=== PATIENT | female | born 1980 | race Caucasian/White ===

== ENCOUNTER 2018-12-28 12:15 | Emergency (ER) | payer MEDICAID, OTHER ==
[~2018-12-28] VITALS: Ht 167.6 cm; Wt 76.2 kg
[2018-12-28 13:34] LABS: Basophils # (auto) 0 uL; Basophils % (auto) 0.4 % (0.0-2.0); Eosinophils # (auto) 0.1 uL; Eosinophils % (auto) 1.2 % (0.0-7.0); Hematocrit 44.4 % (36.0-46.0); Hemoglobin 15.5 g/dL (12.2-16.2); Lymphocytes % (auto) 33.4 % (10.0-50.0); Mean Corpuscular Volume 94.3 fL (80.0-100.0); Monocytes # (auto) 0.3 uL; Monocytes % (auto) 5.4 % (0.0-12.0); Neutrophils # (auto) 3.6 uL; Neutrophils % (auto) 59.6 % (37.0-80.0); Nucleated Red Blood Cells % 0.2 %; Platelet Count (auto) 270 10^3/uL (140-450); Red Blood Cells 4.71 10^6/uL (4.0-5.20); Red Cell Distribution Width 12.6 % (11.8-14.3)
[2018-12-28 13:51] LABS: Alanine Aminotransferase 20 U/L (13-56); Albumin 4.3 g/dL (3.4-5.0); Anion Gap 5 (5-15); Blood Urea Nitrogen 11 mg/dL (7-18); Calcium 8.6 mg/dL (8.5-10.1); Carbon Dioxide 27 mmol/L (21-32); Chloride 106 mmol/L (98-107); Glucose 90 mg/dL (74-106); Magnesium 2.4 mg/dL (1.6-2.6); Potassium 4.9 mmol/L (3.5-5.1); Sodium 138 mmol/L (136-145)
[2018-12-28 13:56] LABS: Alkaline Phosphatase 64 U/L (45-117); Aspartate Aminotransferase 17 U/L (15-37); BUN/Creatinine Ratio 13.1; Bilirubin, Total 0.5 mg/dL (0.2-1.0); GFR African American 98 mL/min; GFR Non-African American 81 mL/min; Total Protein 7.8 g/dL (6.4-8.2)
[2018-12-28 15:06] VITALS: BP 125/88
== END 2018-12-28 15:08 | disposition home or self-care (01) ==
LOC: ER 12:17
DX: R07.9 Chest pain, unspecified (principal); Z90.710 Acquired absence of both cervix and uterus
CPT/HCPCS: 36415; 71046; 80053; 83735; 84484; 85025; 85379; 93005; 94761